=== PATIENT | female | born 1960 | race Caucasian/White ===

== ENCOUNTER 2019-01-27 10:22 | Day surgery (SDC) | payer OTHER ==
[2019-01-26 13:34] VITALS: BMI 34.7
[2019-01-27 10:59] VITALS: BP 156/86; PULSE 75; TEMP 98.1
== END 2019-01-27 13:00 | disposition home or self-care (01) ==
LOC: JASU-SURG 10:22
PROVIDERS: ATTEND Anesthesiology
CPT/HCPCS: 82962